=== PATIENT | male | born 2005 | race Caucasian/White ===

== ENCOUNTER 2024-06-21 16:30 | Emergency (ER) | payer SELFPAY ==
[~2024-06-21] VITALS: Ht 175.3 cm; Wt 78.0 kg
[2024-06-21 16:42] VITALS: O2SAT 100
[2024-06-21 16:52] VITALS: BP 111/63; PULSE 60; RESP 14; TEMP 36.9; O2SAT 98
[2024-06-21 17:40] LABS: BASOPHILS % 0.4 % (0.0-2.0); EOSINOPHILS % 1.6 % (0.0-5.0); HEMATOCRIT. 43.1 % (42.0-52.0); HEMOGLOBIN. 14.8 g/dL (14.0-18.0); LYMPHOCYTES % 18.1 % (20.0-50.0); MEAN CORPUSCULAR HEMOGLOBIN 29.6 pg (28.0-32.0); MEAN CORPUSCULAR HGB CONC 34.3 g/dL (31.0-37.0); MEAN CORPUSCULAR VOLUME 86.2 fL (80.0-94.0); MEAN PLATELET VOLUME 8.6 fl (7.4-10.4); MONOCYTES % 7.8 % (2.0-8.0); NEUTROPHILS % 72.1 % (40.0-76.0); PLATELET 252 x1000/uL (130-400); RED CELL DISTRIBUTION WIDTH 12.7 % (11.6-14.6); WHITE BLOOD COUNT 10.5 x1000/uL (4.5-11.0)
[2024-06-21 17:45] LABS: CHLORIDE 105 mEq/L (98-107); POTASSIUM 3.7 mEq/L (3.5-5.1); SODIUM 143 mEq/L (136-145)
[2024-06-21 17:46] LABS: CARBON DIOXIDE 26 mEq/L (21-32)
[2024-06-21 17:47] LABS: CALCIUM 9.5 mg/dL (8.7-10.4)
[2024-06-21 17:51] LABS: CREATININE 0.8 mg/dL (0.6-1.3); GLUCOSE 104 mg/dL (70-105); UREA NITROGEN BLOOD 8 mg/dL (9-23)
[2024-06-21] MEDS ORDERED: SIME125C MT (18:27)
== END 2024-06-21 18:43 | disposition home or self-care (01) ==
LOC: ER 16:30
DX: K52.9 Noninfective gastroenteritis and colitis, unspecified (principal); R30.0 Dysuria
CPT/HCPCS: 36415; 80048; 85025; 99283